=== PATIENT | male | born 1970 | race Caucasian/White ===

== ENCOUNTER 2018-08-10 10:14 | Emergency (ER) | payer SELFPAY ==
[2018-08-10 11:10] VITALS: BP 147/86
--- NOTE | 2018-08-10 12:47 | UC ---
UC General HPI - HPI Summary HPI Summary: abdominal cramping with diarrhea x 3 this am. it has since resolved. denies fever, blood in stool and travel hx. no recent antibiotic use. no IBD. 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 - History of Current Complaint Chief Complaint: UCGI Stated Complaint: DIARRHEA Time Seen by Provider: 08/10/18 12:40 Hx Obtained From: Patient Pain Intensity: 5 Associated Signs & Symptoms: Negative: Fever, Nausea, Vomiting - Allergy/Home Medications Allergies/Adverse Reactions: Allergies Allergy/AdvReac Type Severity Reaction Status Date / Time aspirin Allergy Swelling Verified 08/10/18 11:07 shellfish derived Allergy Swelling Verified 08/10/18 11:07 Home Medications: Home Medications NK [No Home Medications Reported] 08/10/18 [History Confirmed 08/10/18] PMH/Surg Hx/FS Hx/Imm Hx Previously Healthy: Yes - Surgical History Surgical History: None - Social History Occupation: Employed Full-time Alcohol Use: Daily Alcohol Amount: 2 beers/daily Substance Use Type: None Smoking Status (MU): Heavy Every Day Tobacco Smoker Type: Cigarettes Amount Used/How Often: 1/2 PPD Length of Time of Smoking/Using Tobacco: 24 Years Have You Smoked in the Last Year: Yes Review of Systems All Other Systems Reviewed And Are Negative: Yes Constitutional: Positive: Negative Skin: Positive: Negative Eyes: Positive: Negative ENT: Positive: Negative Respiratory: Positive: Negative Cardiovascular: Positive: Negative Genitourinary: Positive: Negative Motor: Positive: Negative Neurovascular: Positive: Negative Musculoskeletal: Positive: Negative Neurological: Positive: Negative Psychological: Positive: Negative Physical Exam Triage Information Reviewed: Yes Appearance: Well-Appearing Vital Signs: Initial Vital Signs Temp 97.8 F 08/10/18 11:06 Pulse 90 08/10/18 11:06 Resp 15 08/10/18 11:06 BP 147/86 08/10/18 11:06 Pulse Ox 98 08/10/18 11:06 Vital Signs Reviewed: Yes Eyes: Positive: Conjunctiva Clear ENT: Positive: Pharynx normal, TMs normal. Negative: Nasal congestion, Nasal drainage Neck: Positive: Supple, Nontender, No Lymphadenopathy Respiratory: Positive: Lungs clear, Normal breath sounds Cardiovascular: Positive: RRR, No Murmur Abdomen Description: Positive: Nontender, No Organomegaly, Soft. Negative: Distended, Guarding Bowel Sounds: Positive: Present Musculoskeletal: Positive: ROM Intact Neurological: Positive: Alert Psychological: Positive: Age Appropriate Behavior Skin Exam: Normal Diagnostics - Laboratory Diagnostic Studies Completed/Ordered: RAPID FLU=NEG Course/Dx - Course Course Of Treatment: no hx htn, probably illness related. will advised to f/u for bp recheck. - Diagnoses Provider Diagnosis: Diarrhea Discharge - Sign-Out/Discharge Documenting (check all that apply): Patient Departure All imaging exams completed and their final reports reviewed: No Studies - Discharge Plan Condition: Stable Disposition: HOME Patient Education Materials: Acute Diarrhea (ED) Referrals: Tavo Tinoco MD [Primary Care Provider] - As Soon As Possible Additional Instructions: FOLLOW UP PRIMARY CARE FOR A BLOOD PRESSURE RECHECK. BP TODAY 147/86. RAPID FLU TEST IS NEGATIVE. - Billing Disposition and Condition Condition: STABLE Disposition: Home - Attestation Statements Provider Attestation: I was available for consult. This patient was seen by the YESSICA. The patient was not presented to, seen by, or examined by me. -Hesham
== END 2018-08-10 13:18 | disposition home or self-care (01) ==
LOC: UCCORT 10:14
DX: R19.7 Diarrhea, unspecified (principal); Z88.6 Allergy status to analgesic agent; F17.210 Nicotine dependence, cigarettes, uncomplicated
CPT/HCPCS: 99202; G0463